=== PATIENT | female | born 1945 | race Caucasian/White ===

== ENCOUNTER 2021-12-27 13:44 | Outpatient (CLI) | payer MEDICARE, OTHER | END 2021-12-27 13:45 | disposition home or self-care (01) | LOC: CSHRAD 13:44 | PROVIDERS: ATTEND Internal Medicine Medical Oncology | DX: D46.9 Myelodysplastic syndrome, unspecified (principal); M89.8X2 Other specified disorders of bone, upper arm; Z86.73 Personal history of transient ischemic attack (TIA), and cerebral infarction without residual deficits; M81.0 Age-related osteoporosis without current pathological fracture | CPT/HCPCS: 70553 ==